=== PATIENT | male | born 1955 | race Caucasian/White ===

== ENCOUNTER 2021-07-26 13:45 | Inpatient (IN) | payer OTHER ==
[~2021-07-26] VITALS: Ht 167.6 cm; Wt 51.7 kg
[2021-07-26 06:00] VITALS: BP 129/85
--- NOTE | 2021-07-26 13:50 | NUR ---
BIB [facility] FROM [facility],SOB/LOW O2SAT (70's) ON ROOM AIR. AAOX4, DISTRESS.
[2021-07-26] MEDS ORDERED: ALBUTEROL FS 2.5 MG/3 ML VIAL.NEB NEB ONE (14:00)
[2021-07-26] MEDS ORDERED: IPRATROPIUM NEB FS 0.5 MG/2.5 ML AMPUL.NEB NEB ONE (14:00)
--- NOTE | 2021-07-26 14:00 | NUR ---
CALLED RESPIRATORY FOR BREATHING TREATMENT
[2021-07-26] MEDS ORDERED: IPRATROPIUM NEB FS 0.5 MG/2.5 ML AMPUL.NEB ONE (14:06)
[2021-07-26] MEDS ORDERED: ALBUTEROL FS 2.5 MG/3 ML VIAL.NEB ONE (14:06)
[2021-07-26] MEDS ORDERED: ALPR0.5T8 PO (14:43)
[2021-07-26] MEDS ORDERED: ALBU2.5V38 NEB (14:43)
[2021-07-26 14:45] LABS: BASOPHILS % (AUTO) 0.2 % (0.0-2.0); EOSINOPHILS % (AUTO) 0.5 % (0.0-6.0); HEMATOCRIT 43 % (39-51); HEMOGLOBIN 13.8 g/dL (13.5-17.5); LYMPHOCYTES # (AUTO) 1.5 K/uL (0.8-4.8); MEAN CORPUSCULAR HGB CONC 32 g/dl (31.0-36.0); MEAN CORPUSCULAR VOLUME 88 fL (80-96); MONOCYTES # (AUTO) 0.5 K/uL (0.1-1.30); MONOCYTES % (AUTO) 3.9 % (2.0-12.0); NEUTROPHILS # (AUTO) 10.5 K/uL (1.8-8.9); NEUTROPHILS % (AUTO) 83.4 % (43.0-81.0); PLATELET COUNT (AUTO) 306 K/uL (150-450); RED BLOOD CELL COUNT(AUTO) 4.83 MIL/uL (4.5-6.0); WHITE BLOOD COUNT (AUTO) 12.6 K/uL (4.3-11.0)
--- NOTE | 2021-07-26 14:47 | NUR ---
SWAB TAKEN FOR COVID TEST AND SENT TO LAB.
[2021-07-26 14:54] LABS: CALCIUM, SERUM 9.1 mg/dL (8.5-10.1); CREATININE 0.7 mg/dL (0.6-1.3)
[2021-07-26] MEDS ORDERED: CEFTRIAXONE 1 G in IV D5W 50 ML IV ONE (15:00)
--- NOTE | 2021-07-26 15:25 | NUR ---
FIELD RESEARCH ASSOCIATE. AT BED SIDE FOR BLOOD CULTURE
[2021-07-26] MEDS ORDERED: POTASSIUM CHLORIDE 20 MEQ TAB.PRT.SR PO ONE ×2 (15:30→15:31)
[2021-07-26] MEDS ORDERED: LISI20TA30 PO (15:33)
--- NOTE | 2021-07-26 16:16 | NUR ---
[facility] WILL ARRIVE AT 1800
[2021-07-26] MEDS ORDERED: MAGNESIUM HYDROXIDE 30 ML UDC PO PRN (17:00)
[2021-07-26] MEDS ORDERED: ACETAMINOPHEN 325 MG TABLET PO PRN (17:00)
[2021-07-26] MEDS ORDERED: MAG HYDROX/AL HYDROX/SIMETH 30 ML UDC PO PRN (17:00)
[2021-07-26] MEDS ORDERED: ONDANSETRON HCL/PF 4 MG/2 ML VIAL IVP PRN (17:00)
[2021-07-26] MEDS ORDERED: ALBUTEROL FS 2.5 MG/0.5 ML VIAL.NEB NEB PRN (17:00)
[2021-07-26] MEDS ORDERED: Z GUARD REMEDY 4 OZ OINT TP PRN (17:00)
[2021-07-26] MEDS ORDERED: IPRATROPIUM NEB FS 0.5 MG/2.5 ML AMPUL.NEB NEB PRN (17:00)
--- NOTE | 2021-07-26 17:13 | NUR ---
BED 109, ADMITTING AWARE
--- NOTE | 2021-07-26 17:37 | NUR ---
[facility] NURSE CANDY HOLLINGSWORTH 1306
--- NOTE | 2021-07-26 17:58 | NUR ---
REPORT GIVEN TO NIXON MACIEL FOR CLEMENTINA
--- NOTE | 2021-07-26 17:59 | NUR ---
TRANSFERRED TO BED 109 IN STABLE CONDITION
[2021-07-26 18:00] VITALS: BP 129/85
--- NOTE | 2021-07-26 18:00 | NUR ---
edge grinder notes Received Pt from ER nurse. Pt arrived at the unit accompanied by two police officers (Pt came from half-way). Pt is alert and orientedX4. On 3 L NC. No SOB. No S/S of distress noted. IV site at R wrist# 20 is clean, intact and SL. Tele monitor showed S rythm hr at 90. skin assessment is done and performed. Hayden Pt to the room and the use of call light. Pt verbalize understanding. Safety precautions is maintained all the time. Bed at low position, brakes locked, side rails upX2, hob elevated, urinal at the bedside and call light is within reach. Will continue to monitor.
[2021-07-26] MEDS: IV NS 0.9% 1,000 ML IV PRN (18:06)
[2021-07-26] MEDS: ENOXAPARIN SODIUM 40 MG/0.4 ML DISP.SYRIN SQ SCH (18:22)
[2021-07-26] MEDS: AZITHROMYCIN 500 MG in IV D5W 250 ML IV SCH (19:40)
--- NOTE | 2021-07-26 19:48 | NUR ---
RN notes Called Radiology and spoke with Evin regarding Pt's CT angio. Informed Evin that Pt had dinner. Evin stated we will do it in 1 hour. Charge nurse is aware and informed.
--- NOTE | 2021-07-26 19:50 | NUR ---
RN notes Pt signed the consent for CT pul. angiogram. Pt verbalize understanding.
[2021-07-26 20:00] VITALS: BP 125/73
[2021-07-26] MEDS ORDERED: IOHEXOL-350 100 ML VIAL IV ONE (20:16)
--- NOTE | 2021-07-26 20:20 | NUR ---
RN notes Pt is going for CT picked up by turfgrass technician.
--- NOTE | 2021-07-26 20:37 | NUR ---
RN notes Pt is back from CT.
[2021-07-26] MEDS: methylPREDNISolone SOD SUCC 40 MG/ML VIAL IV SCH (21:01)
[2021-07-26] MEDS: ALPRAZOLAM 0.25 MG TABLET PO PRN (21:09)
--- NOTE | 2021-07-26 21:10 | NUR ---
RN notes Pt is feeling anxious and requesting meds. administered xanax 0.25mg/1 tab/po/prn as ordered. safety precautions is maintained. Will continue to monitor.
[2021-07-27] VITALS: BP 137/84
[2021-07-27] MEDS: ZOLPIDEM TARTRATE 5 MG TABLET PO PRN ×2 (01:38→23:35)
--- NOTE | 2021-07-27 01:38 | NUR ---
RN notes Pt is having insomnia and requesting a sleeping pill. Administered ambien 5mg/1 tab/po/prn as ordered for sleeping. safety precautions is maintained. will continue to monitor.
[2021-07-27 04:00] VITALS: BP 141/78
[2021-07-27] MEDS: methylPREDNISolone SOD SUCC 40 MG/ML VIAL IV SCH ×3 (04:01→21:21)
[2021-07-27] MEDS: ALPRAZOLAM 0.25 MG TABLET PO PRN ×3 (05:19→21:52)
--- NOTE | 2021-07-27 05:20 | NUR ---
RN notes Pt is feeling anxious and requesting for xanax. administered xanax 0.25mg/1 tab/po/prn as ordered. safety precautions is maintained. Will continue to monitor.
--- NOTE | 2021-07-27 06:52 | NUR ---
RN closing notes Pt is resting in bed comfortably accompanied by two police officers at the bedside. Pt is alert and orientedX4. On 3 L NC. No SOB. No S/S of distress noted. VS is stable. IV site at R wrist# 20 is clean, intact and SL. CHARISSE midline# 18 is intact and infuising well NS@ 75 ml/hr. Tele monitor showed S rythm with elevated T wave hr at 98. routine meds were given as ordered. Kept Pt clean, dry and comfortable. Safety precautions is maintained all the time. Bed at low position, brakes locked, side rails upX2, hob elevated, urinal at the bedside and call light is within reach. Will endorse to am nurse for CLEMENTINA.
[2021-07-27 06:53] LABS: BASOPHILS % (AUTO) 0.1 % (0.0-2.0); HEMATOCRIT 39 % (39-51); HEMOGLOBIN 12.9 g/dL (13.5-17.5); LYMPHOCYTES # (AUTO) 1.1 K/uL (0.8-4.8); LYMPHOCYTES % (AUTO) 6.9 % (20.0-44.0); MEAN CORPUSCULAR HGB CONC 33 g/dl (31.0-36.0); MEAN CORPUSCULAR VOLUME 88 fL (80-96); MONOCYTES # (AUTO) 0.3 K/uL (0.1-1.30); MONOCYTES % (AUTO) 1.6 % (2.0-12.0); NEUTROPHILS # (AUTO) 14.5 K/uL (1.8-8.9); NEUTROPHILS % (AUTO) 91.4 % (43.0-81.0); PLATELET COUNT (AUTO) 299 K/uL (150-450); RED BLOOD CELL COUNT(AUTO) 4.46 MIL/uL (4.5-6.0); WHITE BLOOD COUNT (AUTO) 15.9 K/uL (4.3-11.0)
[2021-07-27 07:13] LABS: CALCIUM, SERUM 9.1 mg/dL (8.5-10.1); CREATININE 0.8 mg/dL (0.6-1.3); MAGNESIUM 1.5 mg/dL (1.8-2.4); PHOSPHORUS 3.9 mg/dL (2.5-4.9); POTASSIUM 4.1 mmol/L (3.5-5.1)
--- NOTE | 2021-07-27 07:30 | NUR ---
RN notes Received Pt in bed awake. Pt is alert and orientedX4. On 3 L NC. No SOB. No S/S of distress noted. IV site at R wrist# 20 is clean, intact and SL. on Tele monitor. no pain noted. Safety precautions is maintained all the time. Bed at low position, brakes locked, side rails upX2, hob elevated, urinal at the bedside and call light is within reach. Will continue to monitor.
[2021-07-27] MEDS: PANTOPRAZOLE 40 MG TABLET.DR PO SCH (07:45)
[2021-07-27 08:00] VITALS: BP 158/98
[2021-07-27] MEDS: Magnesium 1GM/D5W 100ML PREMIX 100 ML IV SCH ×2 (10:38→11:52)
[2021-07-27 12:00] VITALS: BP 121/71
[2021-07-27] MEDS: IV NS 0.9% 1,000 ML IV PRN (14:20)
[2021-07-27] MEDS: CEFTRIAXONE 1 G in IV D5W 50 ML IV SCH (16:06)
[2021-07-27 16:15] VITALS: BP 135/70
[2021-07-27] MEDS: AZITHROMYCIN 500 MG in IV D5W 250 ML IV SCH (16:45)
[2021-07-27] MEDS: HYDROCODONE/APAP 5/325MG TABLET PO PRN (17:19)
[2021-07-27] MEDS: ENOXAPARIN SODIUM 40 MG/0.4 ML DISP.SYRIN SQ SCH (17:23)
--- NOTE | 2021-07-27 18:45 | NUR ---
RN closing notes Pt in bed awake with the presence of 2 police superintendent. Pt is alert and orientedX4. On 3 L NC. No SOB. No S/S of distress noted. IV site at R wrist# 20 is clean, intact and SL. on Tele monitor. no pain noted. all due meds given as ordered. Safety precautions is maintained all the time. Bed at low position, brakes locked, side rails upX2, hob elevated, urinal at the bedside and call light is within reach. Will endorse for erasto.
--- NOTE | 2021-07-27 19:10 | NUR ---
RN NOTE RECEIVED PATIENT IN BED, AO X 4, [employer] OFFICERS AT BEDSIDE X 2, IN NO ACUTE DISTRESS AT THIS TIME. RESPIRATIONS UNLABORED, SATURATION AT 96% ON 3L VIA NC, SR ON THE MONITOR, HR IS 91. NOTED IV SITE AT R [id number], AND CHARISSE MIDLINE, ALL HUBS PATENT AND FLUSHING WELL, NO S/S OF INFECTION OR INFILTRATION WITH NS INFUSING AT 75 ML/HR. SAFETY MEASURES IMPLEMENTED. HEAD OF BED ELEVATED. BED IS LOCKED, IN LOWEST POSITION AND SIDE RAILS UP. CALL LIGHT WITHIN REACH OF THE PATIENT. WILL CONTINUE TO MONITOR AND REASSESS FOR ANY CHANGES.
[2021-07-27 20:00] VITALS: BP 135/70
[2021-07-28] VITALS: BP 138/78
[2021-07-28] MEDS: HYDROCODONE/APAP 5/325MG TABLET PO PRN ×3 (02:48→20:54)
[2021-07-28 04:00] VITALS: BP 141/86
[2021-07-28] MEDS: IV NS 0.9% 1,000 ML IV PRN ×2 (06:14→20:50)
[2021-07-28] MEDS: methylPREDNISolone SOD SUCC 40 MG/ML VIAL IV SCH ×3 (06:15→16:22)
[2021-07-28 06:32] LABS: BASOPHILS % (AUTO) 0.1 % (0.0-2.0); HEMATOCRIT 37 % (39-51); LYMPHOCYTES # (AUTO) 1.1 K/uL (0.8-4.8); LYMPHOCYTES % (AUTO) 6.1 % (20.0-44.0); MEAN CORPUSCULAR HGB CONC 33 g/dl (31.0-36.0); MEAN CORPUSCULAR VOLUME 88 fL (80-96); MONOCYTES # (AUTO) 0.8 K/uL (0.1-1.30); MONOCYTES % (AUTO) 4.5 % (2.0-12.0); NEUTROPHILS # (AUTO) 15.7 K/uL (1.8-8.9); NEUTROPHILS % (AUTO) 89.3 % (43.0-81.0); PLATELET COUNT (AUTO) 283 K/uL (150-450); RED BLOOD CELL COUNT(AUTO) 4.19 MIL/uL (4.5-6.0); WHITE BLOOD COUNT (AUTO) 17.6 K/uL (4.3-11.0)
[2021-07-28 06:42] LABS: CALCIUM, SERUM 8.6 mg/dL (8.5-10.1); CREATININE 0.8 mg/dL (0.6-1.3); PHOSPHORUS 3.8 mg/dL (2.5-4.9); POTASSIUM 3.5 mmol/L (3.5-5.1)
--- NOTE | 2021-07-28 07:25 | NUR ---
RN OPENING NOTES RECEIVED PATIENT IN BED, AWAKE, A/O X4, NO SIGNS OF ACUTE DISTRESS NOTED. UNDER [employer] CUSTODY. NOTED WITH IV ACCESS ON RIGHT WRIST #20G AND RIGHT UPPER ARM MIDLINE INTACT, WITH IVF OF NS @75ML/HR INFUSING WELL. CURRENTLY ON ROOM AIR TOLERATING WELL, SPO2 @95%, NO SOB NOTED, BREATHING EVEN AND UNLABORED. ON TELE MONITOR WITH CURRENT READING OF SINUS RHYTHM WITH PAC'S, HR @78. SAFETY MEASURES IN PLACE. BED IN LOWEST AND LOCKED POSITION, SR UP X2, CALL LIGHT PLACED WITHIN EASY REACH. WILL CONTINUE TO MONITOR PATIENT.
[2021-07-28] MEDS: PANTOPRAZOLE 40 MG TABLET.DR PO SCH (07:54)
[2021-07-28 08:00] VITALS: BP 132/72
[2021-07-28] MEDS: ALPRAZOLAM 0.25 MG TABLET PO PRN ×2 (08:01→16:01)
[2021-07-28 12:00] VITALS: BP 155/78
--- NOTE | 2021-07-28 13:55 | NUR ---
RN NOTES COVID SWAB TEST DONE, SPECIMEN SENT TO LAB FOR RT-PCR TEST.
[2021-07-28 16:00] VITALS: BP 158/93
[2021-07-28] MEDS: CEFTRIAXONE 1 G in IV D5W 50 ML IV SCH (16:01)
[2021-07-28] MEDS: ENOXAPARIN SODIUM 40 MG/0.4 ML DISP.SYRIN SQ SCH (16:22)
[2021-07-28] MEDS: AZITHROMYCIN 500 MG in IV D5W 250 ML IV SCH (16:40)
--- NOTE | 2021-07-28 18:36 | NUR ---
RN CLOSING NOTES PATIENT RESTING IN BED, NO SIGNS OF ACUTE DISTRESS NOTED. REMAINS UNDER [employer] CUSTODY. 2 QUALITY AUDIT REPRESENTATIVE AT BEDSIDE. IV ACCESS ON RIGHT UPPER ARM MIDLINE #18G, INTACT AND PATENT WITH NS @75 ML/HR RUNNING. SAFETY MEASURES IN PLACE. BED LOCKED AND IN LOWEST POSITION, SR UP X2, CALL LIGHT PLACED WITHIN EASY REACH WILL ENDORSE TO NEXT SHIFT FOR CONTINUITY OF CARE.
--- NOTE | 2021-07-28 19:33 | NUR ---
RN OPENING NOTES RECEIVED CARE OF PATIENT FROM AM NURSE WHILE PATIENT IN BED, A/O X4, ABLE TO VERBALIZE NEEDS. PATIENT IN NO DISCOMFORT OR PAIN AT THIS TIME. [employer] AT BEDSIDE, PATIENT UNDER CUSTODY. PATIENT ON ROOM AIR, BREATHING EVEN AND UNLABORED, NO SOB NOTED. WITH IV ACCESS ON RIGHT WRIST #20G AND RIGHT UPPER ARM MIDLINE INTACT, WITH IVF OF NS @75ML/HR INFUSING WELL. ON TELE MONITOR WITH CURRENT READING OF SINUS TACH WITH PAC'S, HR OF 108, NO DISTRESS NOTED. NO SIGNIFICANT FINDINGS UPON INITIAL NURSING ASSESSMENTS. SAFETY MEASURES IN PLACE. BED IN LOWEST AND LOCKED POSITION, SR UP X2, CALL LIGHT PLACED WITHIN EASY REACH. WILL CONTINUE TO MONITOR PATIENT.
[2021-07-28 20:00] VITALS: BP 131/83
[2021-07-28] MEDS: ZOLPIDEM TARTRATE 5 MG TABLET PO PRN (20:53)
[2021-07-29] VITALS: BP 118/62
[2021-07-29 04:00] VITALS: BP 136/71
[2021-07-29] MEDS: HYDROCODONE/APAP 5/325MG TABLET PO PRN (04:02)
[2021-07-29] MEDS: ALPRAZOLAM 0.25 MG TABLET PO PRN (04:02)
--- NOTE | 2021-07-29 07:00 | NUR ---
RN OPENING NOTES PATIENT ENDORSED BY OUTGOING NURSE FOR CONTINUITY OF CARE. PATIENT IN BED, A/O X4, ABLE TO VERBALIZE NEEDS. PATIENT IN NO DISCOMFORT OR PAIN AT THIS TIME. [employer] AT BEDSIDE, PATIENT UNDER CUSTODY. PATIENT ON ROOM AIR, BREATHING EVEN AND UNLABORED, NO SOB NOTED. WITH IV ACCESS ON RIGHT WRIST #20G AND RIGHT UPPER ARM MIDLINE INTACT, WITH IVF OF NS @75ML/HR INFUSING WELL. ON TELE MONITOR AND NO DISTRESS OR SOB NOTED. NO SIGNIFICANT FINDINGS UPON INITIAL NURSING ASSESSMENTS. SAFETY MEASURES IN PLACE. BED IN LOWEST AND LOCKED POSITION, SR UP X2, CALL LIGHT PLACED WITHIN EASY REACH. WILL CONTINUE TO MONITOR PATIENT.
[2021-07-29] MEDS: PANTOPRAZOLE 40 MG TABLET.DR PO SCH (07:54)
[2021-07-29 08:00] VITALS: BP 143/75
[2021-07-29] MEDS: methylPREDNISolone SOD SUCC 40 MG/ML VIAL IV SCH (08:21)
[2021-07-29 09:46] LABS: CALCIUM, SERUM 8.3 mg/dL (8.5-10.1); CREATININE 0.7 mg/dL (0.6-1.3); MAGNESIUM 1.9 mg/dL (1.8-2.4); PHOSPHORUS 3.1 mg/dL (2.5-4.9); POTASSIUM 3.7 mmol/L (3.5-5.1)
[2021-07-29] MEDS: IV NS 0.9% 1,000 ML IV PRN (10:33)
[2021-07-29] MEDS ORDERED: LORAZEPAM 1 MG TABLET PO PRN (11:00)
[2021-07-29] MEDS ORDERED: SERTRALINE HCL 25 MG TABLET PO SCH (11:00)
[2021-07-29 12:00] VITALS: BP 153/74
[2021-07-29 13:39] LABS: HEMATOCRIT 37 % (39-51); LYMPHOCYTES # (AUTO) 0.9 K/uL (0.8-4.8); LYMPHOCYTES % (AUTO) 6.5 % (20.0-44.0); MEAN CORPUSCULAR HGB CONC 33 g/dl (31.0-36.0); MEAN CORPUSCULAR VOLUME 88 fL (80-96); MONOCYTES # (AUTO) 0.5 K/uL (0.1-1.30); MONOCYTES % (AUTO) 3.8 % (2.0-12.0); NEUTROPHILS % (AUTO) 89.7 % (43.0-81.0); PLATELET COUNT (AUTO) 240 K/uL (150-450); RED BLOOD CELL COUNT(AUTO) 4.21 MIL/uL (4.5-6.0); WHITE BLOOD COUNT (AUTO) 13.4 K/uL (4.3-11.0)
--- NOTE | 2021-07-29 15:34 | NUR ---
Discharge Notes Patient signed all appropriate discharged papers and all belongings returned to patient. Education provided to patient. Patient was sent an electronic prescription to fill at the pharmacy of choice. Patient was discharged to [facility] and was taken with Ambulance via [facility]. Patient IV and ID bands was removed and catheter was still intact. Patient had no complains of pain and was in stable condition. Assistance was provided as needed. Patient left @1533 Addendum: 07/29/21 at 1553 by SALVADOR RUSSELL RN Above note is wrong AMA Discharge Patient requested to sign Against medical advice paper. Patient charge dropped from police department and patient decided to leave after. Charge nurse Soon contacted the primary doctor and Psychiatric doctor to get discharge order. Psychiatric doctor mentioned that patient has no suicidal ideation but he was anxious and depressed. Patient IV and ID bands was removed. Patient had no complains of pain and was in stable condition. Assistance was provided as needed. patient left unit at 1520. Addendum: 07/29/21 at 1706 by SALVADOR RUSSELL RN Dr. Castorena is Psychiatric Dr. that he mentioned patient has no suicidal ideation, He was anxious and depressed.
== END 2021-07-29 15:00 | disposition left against medical advice (07) | DRG 871 ==
LOC: ER 13:52 → TELE1 17:21
PROVIDERS: ADMIT Student in an Organized Health Care Education/Training Program; ATTEND Student in an Organized Health Care Education/Training Program
PROC: 05H533Z Insertion of Infusion Device into Right Subclavian Vein, Percutaneous Approach (ICD-10-PCS; principal; 2021-07-26)
PROC: B546ZZA Ultrasonography of Right Subclavian Vein, Guidance (ICD-10-PCS; 2021-07-26)
DX: A41.9 Sepsis, unspecified organism (principal); J96.01 Acute respiratory failure with hypoxia; J18.9 Pneumonia, unspecified organism; J44.0 Chronic obstructive pulmonary disease with (acute) lower respiratory infection; J44.1 Chronic obstructive pulmonary disease with (acute) exacerbation; R45.851 Suicidal ideations; E87.6 Hypokalemia; F32.A Depression, unspecified; F41.9 Anxiety disorder, unspecified; I10 Essential (primary) hypertension; Z20.822 Contact with and (suspected) exposure to COVID-19; F11.10 Opioid abuse, uncomplicated; Z87.891 Personal history of nicotine dependence
CPT/HCPCS: 36415; 71045-TC; 80048-TC; 83605-TC; 83735-TC; 83880; 84100-TC; 84484-TC; 85025-TC; 85378-TC; 87040-TC; C9803; G0378; J0456; J0696; J1650; J2920; J3475; J7030; J7060; Q9967; U0003